=== PATIENT | female | born 1950 | race Caucasian/White ===

== ENCOUNTER 2024-05-27 07:48 | Day surgery (SDC) | payer MEDICARE ==
[2024-05-27] MEDS ORDERED: Sodium Chloride 0.9% 10 ML Syringe IV ONE (07:49)
[2024-05-27] MEDS ORDERED: fentaNYL 100 MCG/2 ML SDV IV ONE (07:49)
[2024-05-27] MEDS ORDERED: Midazolam 1 MG/ML 2 ML SDV IV ONE (07:49)
[2024-05-27] MEDS: Sodium Chloride 0.9% 10 ML Syringe FLUSH PRN (08:33)
[2024-05-27] MEDS: acetaZOLAMIDE 500 MG Cap.ER PO ONE (10:17)
[2024-05-27] MEDS: Lactated Ringers 1,000 ML IV PRN (12:08)
== END 2024-05-27 10:30 | disposition home or self-care (01) ==
LOC: FB.SDS 07:48
PROVIDERS: ATTEND Ophthalmology
DX: H26.9 Unspecified cataract (principal); I11.0 Hypertensive heart disease with heart failure; I50.22 Chronic systolic (congestive) heart failure; I48.20 Chronic atrial fibrillation, unspecified; Z88.8 Allergy status to other drugs, medicaments and biological substances; Z91.040 Latex allergy status; Z79.899 Other long term (current) drug therapy
CPT/HCPCS: 00142; 99100; A9270-GY; J2250; J3010; J3490; J7120; V2632

== ENCOUNTER 2024-06-10 09:11 | Day surgery (SDC) | payer MEDICARE ==
[2024-06-10] MEDS ORDERED: Sodium Chloride 0.9% 10 ML Syringe IV ONE (09:12)
[2024-06-10] MEDS ORDERED: fentaNYL 100 MCG/2 ML SDV IV ONE (09:12)
[2024-06-10] MEDS ORDERED: Midazolam 1 MG/ML 2 ML SDV IV ONE (09:12)
[2024-06-10] MEDS ORDERED: Lactated Ringers 1,000 ML IV PRN (09:30)
[2024-06-10] MEDS: Sodium Chloride 0.9% 10 ML Syringe FLUSH PRN (09:50)
[2024-06-10] MEDS: acetaZOLAMIDE 500 MG Cap.ER PO ONE (11:32)
== END 2024-06-10 11:57 | disposition home or self-care (01) ==
LOC: FB.SDS 09:11
PROVIDERS: ATTEND Ophthalmology
DX: H26.9 Unspecified cataract (principal); I11.0 Hypertensive heart disease with heart failure; I50.22 Chronic systolic (congestive) heart failure; I48.20 Chronic atrial fibrillation, unspecified; Z79.01 Long term (current) use of anticoagulants; Z79.899 Other long term (current) drug therapy
CPT/HCPCS: 00142; 99100; A9270-GY; J2250; J3010; J3490; V2632

== ENCOUNTER 2025-01-14 20:30 | Emergency (ER) | payer MEDICARE ==
[2025-01-14] MEDS: Diphtheria,Pertussis(Acell),Tetanus Vaccine 0.5 ML Syringe IM ONE (21:10)
== END 2025-01-14 21:15 | disposition home or self-care (01) ==
LOC: FB.ED 20:30
DX: S61.411A Laceration without foreign body of right hand, initial encounter (principal); I48.91 Unspecified atrial fibrillation; I50.9 Heart failure, unspecified; Z90.710 Acquired absence of both cervix and uterus; Z79.899 Other long term (current) drug therapy; Z79.01 Long term (current) use of anticoagulants; Z88.8 Allergy status to other drugs, medicaments and biological substances; Z88.1 Allergy status to other antibiotic agents; Z88.2 Allergy status to sulfonamides; Z91.040 Latex allergy status; Z23 Encounter for immunization; W26.8XXA Contact with other sharp object(s), not elsewhere classified, initial encounter
CPT/HCPCS: 12002; 90471; 90715; 99282-25